=== PATIENT | female | born 1995 | race African-American/Black ===

== ENCOUNTER 2017-09-30 14:37 | Emergency (ER) | payer MEDICAID ==
[~2017-09-30] VITALS: Ht 160 cm; Wt 75.5 kg
[2017-09-30 14:49] VITALS: BP 107/64
--- NOTE | 2017-09-30 16:40 | NUR ---
PATIENT TO BED 12 AT THIS TIME.
--- NOTE | 2017-09-30 17:00 | NUR ---
22 f with c/o vaginal pain x 2 days secondary to cyst; Pt sts hx of recurring of cysts; Pt with no other complaints; Pt denies any n/v/d, vaginal discharge, or urinary complaints. Pt is aox4, rr are even and unlabored. Pt positioned to comfort, bed down. Will continue to monitor.
[2017-09-30] MEDS ORDERED: LIDOCAINE 1% ***ER ONLY *** 10 MG/ML VIAL INJ ONE (17:25)
--- NOTE | 2017-09-30 18:21 | NUR ---
FEMALE CHAPERONED FOR DR. COUCH FOR I&D OF [facility] ABSCESS
[2017-09-30 19:00] VITALS: BP 111/67
--- NOTE | 2017-09-30 19:00 | NUR ---
Patient discharged with v/s stable. Written and verbal after care instructions given and explained. Patient alert, oriented and verbalized understanding of instructions. Ambulatory with steady gait. All questions addressed prior to discharge. ID band removed. Patient advised to follow up with PMD. Rx of Naprosyn and Cephalexin given. Patient educated on indication of medication including possible reaction and side effects. Opportunity to ask questions provided and answered.
== END 2017-09-30 19:00 | disposition home or self-care (01) ==
LOC: MED 14:37
DX: N75.1 Abscess of Bartholin's gland (principal)
CPT/HCPCS: 56420; 99283; J2001

== ENCOUNTER 2017-12-01 11:40 | Emergency (ER) | payer MEDICAID ==
[~2017-12-01] VITALS: Ht 157.5 cm; Wt 76.2 kg
[2017-12-01 11:49] VITALS: BP 121/65
--- NOTE | 2017-12-01 11:52 | NUR ---
Pt ambulated to chair B.
--- NOTE | 2017-12-01 11:55 | NUR ---
22F BIB SELF C/O LEFT EYE REDNESS X LAST NIGHT; PT STATES " I HAVE PINK EYE"; PT C/O LEFT EYE FEELING "SORE", NON-RADIATING, 3/10 AT THIS TIME; PT STATES NO TRAUMA OR INJURY TO EYE AT THIS TIME; LIGHT PINK COLORATION NOTED TO LEFT EYE, BUT NO DRAINAGE NOTED FROM LEFT EYE AT THIS TIME; PT STATES NO BLURRY VISION OR VISION CHANGES AT THIS TIME. PT AA&OX4, BL LUNG SOUNDS CLEAR, RR EVEN/UNLABORED, SKIN IS WARM/DRY/INTACT WITH EVEN AND STEADY GAIT; PT RESTING IN CHAIR B, POSITIONED FOR COMFORT; ER MD MADE AWARE OF STATUS. WILL CONTINUE TO MONITOR.
--- NOTE | 2017-12-01 12:01 | NUR ---
ER MD DR. CERVANTES EVALUATING AT CHAIR B.
[2017-12-01 12:15] VITALS: BP 117/69
--- NOTE | 2017-12-01 12:15 | NUR ---
Patient discharged with v/s stable. Written and verbal after care instructions given and explained. Patient alert, oriented and verbalized understanding of instructions. Ambulatory with steady gait. All questions addressed prior to discharge. ID band removed. Patient advised to follow up with PMD. Rx of GARAMYCIN given. Patient educated on indication of medication including possible reaction and side effects. Opportunity to ask questions provided and answered.
== END 2017-12-01 12:15 | disposition home or self-care (01) ==
LOC: MED 11:40
DX: H10.9 Unspecified conjunctivitis (principal)
CPT/HCPCS: 99283

== ENCOUNTER 2018-03-11 10:47 | Emergency (ER) | payer MEDICAID ==
[~2018-03-11] VITALS: Ht 160 cm; Wt 70.3 kg
[2018-03-11 10:59] VITALS: BP 93/65
[2018-03-11 13:30] VITALS: BP 98/64
[2018-03-13 06:36] LABS: CHLAMYDIA TRACHOMATIS AMP DNA Negative (Negative)
== END 2018-03-11 13:30 | disposition home or self-care (01) ==
LOC: MED 10:47
DX: R30.0 Dysuria (principal); N89.8 Other specified noninflammatory disorders of vagina; M54.9 Dorsalgia, unspecified
CPT/HCPCS: 36415; 81002; 81025; 87491; 99283

== ENCOUNTER 2018-04-26 21:41 | Emergency (ER) | payer MEDICAID ==
[~2018-04-26] VITALS: Ht 160 cm; Wt 71.2 kg
[2018-04-26 21:41] VITALS: BP 112/71
--- NOTE | 2018-04-26 21:51 | NUR ---
Notified the [facility]'s Department. An officer will be dispatched as soon as possible.
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
--- NOTE | 2018-04-26 22:25 | NUR ---
iv technician at bedside.
--- NOTE | 2018-04-26 22:28 | NUR ---
WOUND CLEANED WITH NORMAL SALINE
--- NOTE | 2018-04-26 22:30 | NUR ---
LEFT ANTERIOR LOWER LEG CLEANSED WITH NS AND PAT DRY. PT TOLERATED PROCEDURE WELL. BLEEIND CONTOLLED. VSS. CONTINUE TO MONITOR.
--- NOTE | 2018-04-27 00:08 | NUR ---
[facility] at bedside.
--- NOTE | 2018-04-27 01:00 | NUR ---
PT IN BED POSITIONED FOR COMFORT WITH VSS. CONTINUE TO MONITOR.
--- NOTE | 2018-04-27 02:00 | NUR ---
PT IN BED POSITIONED FOR COMFORT WITH VSS. CONTINUE TO MONITOR.
[2018-04-27] MEDS ORDERED: NEOMYCIN/POLYMYXIN/BACITRACIN 0.9 GM/1 PKT TP ONE (02:15)
[2018-04-27] MEDS ORDERED: LIDOCAINE MPF 1% 5mL VIAL INJ ONE (02:15)
--- NOTE | 2018-04-27 02:39 | NUR ---
Dr Lara at [facility] performing sutures and mayelin to left anterior lower leg.
--- NOTE | 2018-04-27 03:00 | NUR ---
BACITRACIN APPLIED TO WOUND ON L ANKLE, NON ADHERENT GAUZE BAD PLACED ON SITE AND WRAPPED IN COFLEX. +CSM
--- NOTE | 2018-04-27 03:00 | NUR ---
xylocaine administered by Dr. Lara.
[2018-04-27] MEDS ORDERED: IBUPROFEN 600 MG TAB PO ONE (03:05)
[2018-04-27] MEDS ORDERED: HYDROcodone/APAP 5/325 MG 1 TAB TAB PO ONE (03:05)
[2018-04-27 03:18] VITALS: BP 112/71
--- NOTE | 2018-04-27 03:18 | NUR ---
Patient discharged with v/s stable. Written and verbal after care instructions given and explained. Patient alert, oriented and verbalized understanding of instructions. Ambulatory with steady gait. All questions addressed prior to discharge. ID band removed. Patient advised to follow up with PMD. Rx of Ibuprofen and bacitracin given. Patient educated on indication of medication including possible reaction and side effects. Opportunity to ask questions provided and answered.
== END 2018-04-27 03:18 | disposition home or self-care (01) ==
LOC: MED 21:41
DX: S81.812A Laceration without foreign body, left lower leg, initial encounter (principal); W50.0XXA Accidental hit or strike by another person, initial encounter; Y93.02 Activity, running; Y92.414 Local residential or business street as the place of occurrence of the external cause; Y99.8 Other external cause status
CPT/HCPCS: 12002; 73610; 81002; 81025; 99284; J2001; Q0092

== ENCOUNTER 2018-05-07 17:05 | Emergency (ER) | payer MEDICAID ==
[~2018-05-07] VITALS: Ht 160 cm; Wt 71.2 kg
[2018-05-07 17:09] VITALS: BP 101/70
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
--- NOTE | 2018-05-07 17:13 | NUR ---
PT AMBULATES TO BED 6
--- NOTE | 2018-05-07 17:45 | NUR ---
REMOVED ANNIE TO LLG WOUND.
[2018-05-07 17:54] VITALS: BP 118/64
--- NOTE | 2018-05-07 17:54 | NUR ---
Patient discharged with v/s stable. Written and verbal after care instructions given and explained. Patient verbalized understanding. Ambulatory with steady gait. All questions addressed prior to discharge. Advised to follow up with PMD.
== END 2018-05-07 17:54 | disposition home or self-care (01) ==
LOC: MED 17:05
DX: S81.812D Laceration without foreign body, left lower leg, subsequent encounter (principal); X58.XXXD Exposure to other specified factors, subsequent encounter
CPT/HCPCS: 90471; 90715; 99283

== ENCOUNTER 2019-09-22 10:28 | Emergency (ER) | payer MEDICAID, OTHER ==
[~2019-09-22] VITALS: Ht 160 cm; Wt 72.6 kg
[2019-09-22 11:09] VITALS: BP 111/56
--- NOTE | 2019-09-22 11:16 | NUR ---
WAIT AT LOBBY
--- NOTE | 2019-09-22 11:30 | NUR ---
PT AMBULATED TO BED 06.
--- NOTE | 2019-09-22 11:32 | NUR ---
24 y/o f c/c of per pt " possible bladder infection" ; per pt smelly urine x1 week. no pain. pt nka. no hx. no rx. no n/v/d. side rail x1.
--- NOTE | 2019-09-22 12:03 | NUR ---
Dr. Jiang is evaluating the patient at bedside.
[2019-09-22 12:50] VITALS: BP 126/85
--- NOTE | 2019-09-22 12:50 | NUR ---
Patient discharged with v/s stable. Written and verbal after care instructions given and explained. Patient alert, oriented and verbalized understanding of instructions. Ambulatory with steady gait. All questions addressed prior to discharge. ID band removed. Patient advised to follow up with PMD. Rx of KEFLES given. Patient educated on indication of medication including possible reaction and side effects. Opportunity to ask questions provided and answered.
== END 2019-09-22 12:50 | disposition home or self-care (01) ==
LOC: MED 10:28
DX: N39.0 Urinary tract infection, site not specified (principal)
CPT/HCPCS: 81002; 81025; 87086; 87186; 99283

== ENCOUNTER 2021-07-25 12:03 | Emergency (ER) | payer OTHER ==
[~2021-07-25] VITALS: Ht 162.6 cm; Wt 83.5 kg
[2021-07-25 12:18] VITALS: BP 141/77
--- NOTE | 2021-07-25 12:30 | NUR ---
patient ambulated to bed 11 with steady/even gait.
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
[2021-07-25] MEDS ORDERED: KETOROLAC 30 MG/ML VIAL IM ONE (12:35)
--- NOTE | 2021-07-25 12:38 | NUR ---
RAVEN Handy is evaluating patient at bedside
[2021-07-25] MEDS ORDERED: CYCL-711 PO (13:41)
[2021-07-25] MEDS ORDERED: IBUP-2213 PO (13:41)
--- NOTE | 2021-07-25 13:50 | NUR ---
Patient discharged with v/s stable. Written and verbal after care instructions given and explained. Patient alert, oriented and verbalized understanding of instructions. Ambulatory with steady gait. All questions addressed prior to discharge. ID band removed. Patient advised to follow up with PMD. Rx of Flexeril, Ibuprofen given. Patient educated on indication of medication including possible reaction and side effects. Opportunity to ask questions provided and answered.
== END 2021-07-25 13:50 | disposition home or self-care (01) ==
LOC: MED 12:03
DX: S13.4XXA Sprain of ligaments of cervical spine, initial encounter (principal); V98.8XXA Other specified transport accidents, initial encounter; Y93.89 Activity, other specified; Y92.89 Other specified places as the place of occurrence of the external cause; Y99.8 Other external cause status
CPT/HCPCS: 96372; 99283; J1885

== ENCOUNTER 2021-11-04 16:30 | Emergency (ER) | payer OTHER ==
[~2021-11-04] VITALS: Ht 160 cm; Wt 83.0 kg
[~2021-11-04 16:30] MED LIST: CYCL-711 PO; IBUP-2213 PO
[2021-11-04 16:34] VITALS: BP 123/76
--- NOTE | 2021-11-04 16:48 | NUR ---
assessing pt in praneeth
[2021-11-04] MEDS ORDERED: ONDA-188 PO (17:05)
[2021-11-04] MEDS ORDERED: CYCL-711 PO (17:05)
[2021-11-04] MEDS ORDERED: IBUP-2213 PO (17:05)
--- NOTE | 2021-11-04 17:40 | NUR ---
Patient discharged with v/s stable. Written and verbal after care instructions given and explained. Patient alert, oriented and verbalized understanding of instructions. Ambulatory with steady gait. All questions addressed prior to discharge. ID band removed. Patient advised to follow up with PMD. Rx of cyclobenzaprine, ibuprofen, ondansetron (sent) given. Patient educated on indication of medication including possible reaction and side effects. Opportunity to ask questions provided and answered.
[2021-11-04 17:41] VITALS: BP 123/76
== END 2021-11-04 17:40 | disposition home or self-care (01) ==
LOC: MED 16:30
DX: M54.9 Dorsalgia, unspecified (principal); R11.2 Nausea with vomiting, unspecified; Z79.899 Other long term (current) drug therapy
CPT/HCPCS: 99283

== ENCOUNTER 2023-01-09 18:20 | Emergency (ER) | payer OTHER ==
[~2023-01-09] VITALS: Ht 162.6 cm; Wt 81.6 kg
[~2023-01-09 18:20] MED LIST changes: +ONDA-188 PO
[2023-01-09 18:50] VITALS: BP 111/80
--- NOTE | 2023-01-09 18:54 | NUR ---
SENT TO [facility]
--- NOTE | 2023-01-09 19:32 | NUR ---
Dr. Elliott examining patient.
--- NOTE | 2023-01-09 19:40 | NUR ---
PT TAKEN TO RADIOLOGY
--- NOTE | 2023-01-09 19:44 | NUR ---
PT RETURN FROM RADIOLOGY
[2023-01-09 20:25] LABS: BASOPHILS # (AUTO) 0.1 K/uL (0.00-0.22); BASOPHILS % (AUTO) 0.8 % (0.0-2.0); EOSINOPHILS # (AUTO) 0.1 K/uL (0-0.4); EOSINOPHILS % (AUTO) 0.9 % (0.0-4.0); HEMATOCRIT 36.4 % (36-48); HEMOGLOBIN 12.2 g/dL (12.0-16.0); LYMPHOCYTES # (AUTO) 3.2 K/uL (2.5-16.5); LYMPHOCYTES % (AUTO) 22.2 % (20.5-51.1); MEAN CORPUSCULAR HEMOGLOBIN 29 pg (27-31); MEAN CORPUSCULAR HGB CONC 33 g/dL (33-37); MONOCYTES # (AUTO) 1.1 K/uL (0.8-1.0); MONOCYTES % (AUTO) 7.3 % (1.7-9.3); NEUTROPHILS % (AUTO) 68.8 % (42.2-75.2); PLATELET COUNT (AUTO) 442 K/uL (140-450); RED BLOOD CELL COUNT(AUTO) 4.14 MIL/uL (4.20-5.40); RED CELL DISTRIBUTION WIDTH 12.7 % (11.6-13.7); WHITE BLOOD COUNT (AUTO) 14.5 K/uL (4.8-10.8)
[2023-01-09 20:49] LABS: ALBUMIN 3.2 g/dL (3.4-5.0); ANION GAP 8.6 (8-16); ASPARTATE AMINOTRANSFERASE 14 U/L (15-37); CARBON DIOXIDE 31.9 mmol/L (21-32); CHLORIDE 101 mmol/L (98-107); CREATININE 0.7 mg/dL (0.6-1.3); GFR ARICAN-AMERICAN 127 mL/min (>90); GLUCOSE 93 mg/dL (74-106); POTASSIUM 3.5 mmol/L (3.5-5.1); SODIUM SERUM 138 mmol/L (136-145); TOTAL BILIRUBIN 0.3 mg/dL (0.0-1.0); UREA NITROGEN, BLOOD 4 mg/dL (7-18)
[2023-01-09] MEDS ORDERED: IBUP-2213 PO (22:43)
--- NOTE | 2023-01-09 22:51 | NUR ---
Patient left without discharge paperwork.
== END 2023-01-09 22:51 | disposition home or self-care (01) ==
LOC: MED 18:20
DX: R09.1 Pleurisy (principal); Z79.899 Other long term (current) drug therapy; Z79.1 Long term (current) use of non-steroidal anti-inflammatories (NSAID)
CPT/HCPCS: 36415; 71045; 80053; 84484; 85025; 85379; 93005; 99285; J7030